=== PATIENT | female | born 1975 | race Hispanic/Latino ===

== ENCOUNTER 2016-10-18 08:28 | Inpatient (IN) ==
[2016-10-18] MEDS ORDERED: IOPAMIDOL 100 ML BOTTLE IV ONE (08:29)
[2016-10-18] MEDS ORDERED: 0.9 % SODIUM CHLORIDE 1,000 ML IV ONE (08:50)
[2016-10-18] MEDS ORDERED: ONDANSETRON 4 MG/2 ML VIAL IV ONE ×2 (08:53→14:29)
--- NOTE | 2016-10-18 09:07 | Emergency Department Note ---
Abdominal Pain HPI - General Chief Complaint: Abdominal Pain Stated Complaint: Abdominal pain Time Seen by Provider: 10/18/16 09:03 Source: patient Mode of arrival: ambulatory Limitations: no limitations - History of Present Illness HPI Narrative: This patient has had nausea vomiting abdominal pain and diarrhea since yesterday. Pain is diffuse in the abdomen diarrhea is just runny. Complaint: abdominal pain Onset (ago): hour(s) Consistency: constant Location: diffuse Severity: moderate Quality: cramping Radiation: none Migration to: no migration Improves with: nothing Worsens with: nothing - Related Data Home Medications Medication Instructions Recorded Confirmed cholecalciferol (vitamin D3) 2,000 4,000 unit PO ONCE cap 02/13/16 10/18/16 unit capsule linaclotide 145 mcg capsule 145 mcg PO QPM cap 08/03/16 10/18/16 linaclotide 290 mcg capsule 290 mcg PO QAM 30 Days 08/03/16 10/18/16 Previous Rx's Medication Instructions Recorded triamterene 37.5 1 tab-cap PO .QOD PRN #30 tab 08/03/16 mg-hydrochlorothiazide 25 mg tablet Allergies Allergy/AdvReac Type Severity Reaction Status Date / Time Imipramine Allergy Severe Lip Verified 10/18/16 19:31 Swelling Penicillins [PENICILLINS] Allergy Severe Stops Verified 10/18/16 19:31 Breathing Review of Systems Constitutional: Denies: fever, chills Eyes: Denies: eye pain ENT ED: Denies: ear pain Cardiovascular: Denies: chest pain Respiratory: Denies: cough Gastrointestinal: Reports: abdominal pain, nausea, vomiting, diarrhea. Denies: constipation, hematemesis, melena, hematochezia Genitourinary: Denies: urgency Musculoskeletal: Denies: back pain Integumentary: Denies: rash Neurological: Denies: headache Abdominal Pain PMH - Past Medical History Medical history: Reports: arthritis, asthma Surgical history ED: Reports: hysterectomy, other (breast augmentation) [employer] history: Reports: bilateral tubal ligation - Social History Alcohol use: Reports: Rarely Drug use: Reports: none Physical Exam - General Limitations: no limitations General appearance: alert - Head Head exam: atraumatic - Eye Eye exam: Present: normal appearance - ENT ENT exam: normal exam - Neck Neck exam: Present: normal inspection - Chest Chest inspection: Present: normal inspection - Respiratory Respiratory exam: Present: normal lung sounds bilaterally - Cardiovascular Cardiovascular exam: Present: regular rate, normal rhythm, normal heart sounds - Abdominal Exam Abdominal exam: Present: soft, tenderness, hyperactive bowel sounds. Absent: distention, guarding, rebound, rigidity Abdominal tenderness: Present: diffuse, moderate - Rectal Exam Rectal exam: Present: deferred - Neurological Exam Neurological exam: Present: alert - Psychiatric Psychiatric exam: Present: normal affect - Skin Skin exam: Present: warm, dry Course Vital Signs Temperature 98.3 F 10/18/16 08:28 Pulse Rate 98 H 10/18/16 08:28 Respiratory Rate 18 10/18/16 08:28 Blood Pressure 120/79 10/18/16 08:28 Pulse Oximetry (%) 100 10/18/16 08:28 Temperature 98.5 F 10/19/16 06:34 Pulse Rate 70 10/19/16 06:34 Respiratory Rate 16 10/19/16 06:34 Blood Pressure 105/70 10/19/16 06:34 Pulse Oximetry (%) 98 10/19/16 06:34 Abdominal Pain - MDM Narrative Medical decision making narrative: Patient was treated with Levaquin and Flagyl fluids and Zofran Dilaudid and after 5 or 6 hours was still very uncomfortable and wished to be admitted. Hospitalist service was contacted and will admit the patient. - Lab Data Lab results reviewed: Yes I reviewed the patient's lab results. Result diagrams: 10/19/16 05:55 10/18/16 08:52 Lab Results 10/18/16 10/18/16 10/18/16 Range/Units 08:52 08:52 09:19 WBC 9.5 (4.5-11.0) K/mcL RBC 4.55 (4.00-5.20) M/mcL Hgb 14.8 (12.0-15.0) g/dL Hct 44.4 (36.0-48.0) % MCV 97.5 (80.0-100.0) fL MCH 32.5 (26.0-34.0) pg MCHC 33.3 (31.0-36.0) g/dL RDW 12.7 (11.5-14.5) % Plt Count 254 (140-440) K/mcL MPV 8.7 (7.4-10.4) fL Gran % 89.6 H (38.0-78.0) % Lymph % (Auto) 6.4 L (15.5-49.0) % [place] % (Auto) 3.2 (1.0-9.0) % Eos % (Auto) 0.6 (0.0-7.0) % Baso % (Auto) 0.2 (0.0-2.0) % Gran # 8.5 H (1.8-8.0) K/mcL Lymph # 0.6 L (1.5-4.8) K/mcL [place] # 0.3 (0.1-0.9) K/mcL Eos # 0.1 (0.0-0.7) K/mcL Baso # 0 (0.0-0.3) K/mcL Sodium 139 (133-145) mmol/L Potassium 4.2 (3.3-5.1) mmol/L Chloride 102 (96-108) mmol/L Carbon Dioxide 23 (22-30) mmol/L Anion Gap 14.0 (8-16) BUN 10 (6-20) mg/dl Creatinine 0.7 (0.6-1.1) mg/dl GFR Calculation 109 Glucose 101 (70-105) mg/dL Calcium 9.1 (8.6-10.4) mg/dl Total Bilirubin 0.9 (0.0-1.0) mg/dL AST 15 (0-37) U/l ALT 10 (0-40) U/l Alkaline Phosphatase 70 (39-117) U/L Total Protein 7.2 (5.9-8.4) gm/dL Albumin 4.1 (3.2-5.2) gm/dL Globulin 3.1 (2.2-3.7) gm/dL Albumin/Globulin Ratio 1.3 (1.0-2.3) Urine Color Evelyn Urine Appearance Cloudy Urine pH 5.0 (5.0-9.0) Ur Specific Drifting 1.026 (1.000-1.035) Urine Protein 30 A (NEG) mg/dL Urine Glucose (UA) Negative (NEG) mg/dL Urine Ketones 20 A (NEG) mg/dL Urine Occult Blood Neg (<0.03) mg/dL Urine Nitrate Neg (NEG) Urine Bilirubin Neg (NEG) mg/dL Urine Urobilinogen Neg (NEG) mg/dL Ur Leukocyte Esterase Neg (NEG) /uL Urine RBC 2 H (0-1) /hpf Urine WBC 2 (0-4) /hpf Ur Squamous Epith Cells 27 H (0-4) /hpf Urine Bacteria 0 (0) /hpf Urine Mucus Many A (0) /hpf Ur Culture Indicated? No - Radiology Data Radiology results reviewed: Yes I reviewed the patient's radiology results. (cT scan was consistent with colitis in the ascending colon) Disposition Clinical Impression: Colitis, Gastroenteritis Disposition: Xfer As Inpt ([facility]) Condition: Fair
[2016-10-18] MEDS: HYDROmorphone 2 MG/ML SYRINGE IV PRN ×4 (09:22→17:23)
[2016-10-18 09:26] LABS: Basophils # (Auto) 0 K/mcL (0.0-0.3); Basophils % (Auto) 0.2 % (0.0-2.0); Eosinophils # (Auto) 0.1 K/mcL (0.0-0.7); Eosinophils % (Auto) 0.6 % (0.0-7.0); Granulocytes % (Auto) 89.6 % (38.0-78.0); Lymphocytes # (Auto) 0.6 K/mcL (1.5-4.8); Lymphocytes % (Auto) 6.4 % (15.5-49.0); Mean Cell Volume 97.5 fL (80.0-100.0); Mean Corpuscular HGB Conc 33.3 g/dL (31.0-36.0); Mean Corpuscular Hemoglobin 32.5 pg (26.0-34.0); Monocytes # (Auto) 0.3 K/mcL (0.1-0.9); Monocytes % (Auto) 3.2 % (1.0-9.0); Platelet Count 254 K/mcL (140-440); RBC 4.55 M/mcL (4.00-5.20); Red Cell Distribution Width 12.7 % (11.5-14.5)
--- NOTE | 2016-10-18 09:36 | XRay Report ---
HISTORY: Reason for Exam:pain r/o sbo FINDINGS: There are a few loops of mildly dilated small bowel in the right mid abdomen which contain air-fluid levels. The stomach is distended with large amount of ingested material and also contains an air-fluid level. Small air-fluid levels are present in nondistended a sending colon. There is no free intra-abdominal air. No soft tissue mass is identified. IMPRESSION: Early or incomplete small bowel obstruction Interpreted and Authenticated by: rA Warren 10/18/16
[2016-10-18 09:52] LABS: Appearance,Urine CLOUDY; Bacteria,Urine 0 /hpf (0); Bilirubin,Urine NEG (NEG); Color,Urine AMBER; Glucose,Urine (UA) NEGATIVE (NEG); Leukocyte Esterase,Urine NEG /uL (NEG); Mucus,Urine MANY /hpf (0); Nitrate,Urine NEG (NEG); Protein,Urine 30 mg/dL (NEG); Specific Gravity,Urine 1.026 (1.000-1.035); Urine Blood NEG mg/dL (<0.03); Urine RBC 2 /hpf (0-1); Urine Squamous Epithelial Cell 27 /hpf (0-4); Urine WBC 2 /hpf (0-4); Urobilinogen,Urine NEG (NEG)
[2016-10-18 09:57] LABS: ALT/SGPT 10 U/l (0-40); Albumin 4.1 gm/dL (3.2-5.2); Albumin/Globulin Ratio 1.3 (1.0-2.3); Alkaline Phosphatase 70 U/L (39-117); Blood Urea Nitrogen 10 mg/dl (6-20)
--- NOTE | 2016-10-18 12:33 | Cat Scan Report ---
CLINICAL INFORMATION: Reason for Exam:sbo on plain film with abdominal cramping and diarrhea COMPARISON: 06/23/16 FINDINGS: The patient was imaged following intravenous but no oral contrast scanning during the portal venous phase from the diaphragm to the symphysis pubis. Sagittal and coronal reformats were created. There are a few bands of discoid atelectasis in the basilar segments left lower lobe. No pleural effusion is present. The heart size is normal. Liver is normal in size. There is a 6 x 8 mm subcapsular cyst laterally in the right lobe. The liver is otherwise homogeneous. The cyst is a chronic finding. The gallbladder contains a round 8 mm calculus. The dietz not thickened or inflamed and the bile ducts are nondilated. The spleen is normal in size and homogeneous. A 1 cm cyst recently lies along the medial side. There is no mass or inflammation the pancreas. The adrenals and kidneys are normal. There is no kidney stone or hydronephrosis. There is a fat-containing umbilical hernia. There is no associated inflammation. The hernia measures 2 cm in width. There is a large amount of fluid in the stomach. The duodenum and jejunum are normal. There are a few loops of fluid-filled distal ileum with air-fluid levels. The measure up to 2.5 cm in diameter. The dietz do not appear to be thickened or inflamed. The terminal ileum appears normal. The appendix is noninflamed. The adjacent colon is incompletely distended. It contains liquefied stool and air-fluid levels. There is circumferential thickening of the wall of the cecum and a sending colon. These are new finding since prior CT done on 06/23/16. No transition point is seen in the large or small intestine. No mass, abscess or ascites or adenopathy are present in the abdomen or pelvis. The uterus has been removed. The previously seen cyst in the right ovary has resolved. No abnormality seen in the adnexa today's exam. IMPRESSION: Air-fluid levels in nondilated distal ileum and a ascending colon. The pattern is more consistent with ileus rather than a small bowel obstruction. The mild thickening of the wall of the colon suggests low-grade colitis or mild inflammatory bowel disease. Dr. Appiah was called with the results Interpreted and Authenticated by: Ar Warren 10/18/16
[2016-10-18] MEDS ORDERED: LEVOFLOXACIN 500 MG/100 ML BAG IV ONE (12:54)
[2016-10-18] MEDS ORDERED: metroNIDAZOLE 500 MG/100 ML BAG IV ONE (12:54)
[2016-10-18] MEDS ORDERED: NALOXONE HCL 0.4 MG/ML VIAL IV PRN ×2 (18:58→19:32)
[2016-10-18] MEDS ORDERED: HYDROmorphone 2 MG/ML SYRINGE IV PRN ×2 (18:58→19:32)
[2016-10-18] MEDS ORDERED: DEXTROSE 5%-1/2NS 1,000 ML IV SCH (19:00)
[2016-10-18] MEDS ORDERED: ONDANSETRON 4 MG/2 ML VIAL IV PRN (19:05)
--- NOTE | 2016-10-18 19:10 | Internal Med History&Physical ---
Medical - H&P: HPI Patient information: Note initiated : 10/18/16 at 7:07 pm Service Date, if different from initiated Date: [] Patient: Jillian Stallworth a 40 y/o F admitted on for Abd Pain. Chief Complaint: [] History of present illness: Ms. Stallworth is a 40 year old female who presents to the hospital today with 2 days history of abdominal pain, nausea and vomiting. The patient has h//o chr bowel issues. she has been following up with GI and had a recent Colnoscopy as well as Ct which was negative. She was daignosed with IBS costipation type and started on linzess approximately a couple of months ago. She has responded well the medication and used to take the medication regularily. She self stopped the medication after her bowels had normalized and then resumed it when she became constipated again. the present episode of abdominal pain ,associated with nause and vomiting started yesterday, pain in the right lower qudarant, distention noted, pain sharp in nature, worse with movement. better with rest. She had an episode of explosive diarrhea, she has not been able to keep any food down today. The patient denies any consumption of stale food, or eating outside. She denies any fever or chills. In the ER the patient underwent a X ray abdomen and pelvis ,which showed early SBO, subsequent CT abdomen and pelvis shows Ileus, with air fluid levels in the distal ileum and ascending colon, with mild colitis. patient denies any recent use of antibiotics, but she does have h/o recurrent UTI in the recent past. She was given levaquin and flagyl in the ER, along with anti nausea meds, the patients condition did not improve and therefore she as admitted to the hospital for further management. Pt was accompanied by her in the ER Review of systems: 10 point ROS done, all negative except as mentioned in the HPI Medical - H&P: PMH Medical history: Medical History Complicated UTI (urinary tract infection) (Acute) Hematuria (Acute) Otitis media, left (Acute) Overweight (BMI 25.0-29.9) (Acute) UTI (urinary tract infection) (Acute) Upper respiratory infection (Acute) Vaginal bleeding between periods (Acute) Vaginitis (Acute) Arthritis (Chronic) Asthma (Chronic) Bilateral knee pain (Chronic) Leiomyoma uteri (Chronic) Menorrhagia (Chronic) Pelvic pain (Chronic) Seasonal allergies (Chronic) Septate uterus (Chronic) Pharyngitis (Resolved) Viral pharyngitis (Resolved) Viral syndrome (Resolved) Depression (Inactive) Surgical history: Past Surgical History History of D&C (Chronic 11/30/15) History of breast augmentation (Chronic) History of colonoscopy (Chronic 07/05/16) History of hysterectomy (Chronic 11/30/15) History of laparoscopy (Chronic 11/30/15) History of tubal ligation (Chronic) Social history: lives with . Medical - H&P: Meds Home Medications Medication Instructions Recorded Confirmed Type cholecalciferol (vitamin D3) 2,000 4,000 unit PO ONCE cap 02/13/16 08/22/16 History unit capsule linaclotide 145 mcg capsule 145 mcg PO QPM cap 08/03/16 08/22/16 History linaclotide 290 mcg capsule 290 mcg PO QAM 30 Days 08/03/16 08/22/16 History Allergies Allergy/AdvReac Type Severity Reaction Status Date / Time Imipramine Allergy Severe Other Verified 10/18/16 08:31 Penicillins [PENICILLINS] Allergy Unknown STOPS Verified 10/18/16 08:31 BREATHING Medical - H&P: Exam - Constitutional Vitals: Temp Pulse Resp BP Pulse Ox 98.3 F 70 16 112/72 99 10/18/16 08:28 10/18/16 18:17 10/18/16 18:17 10/18/16 18:17 10/18/16 18:17 General appearance: cooperative, mild distress - Head Head exam: Present: atraumatic, normal inspection, normocephalic - Eye Eye exam: Absent: conjunctival injection, periorbital swelling, scleral icterus - ENT ENT exam: Present: mucous membranes dry, normal external ear exam - Neck Neck exam: Present: normal inspection - Respiratory Respiratory exam: Present: normal respiratory exam. Absent: accessory muscle use, rhonchi, stridor, wheezes - Cardiovascular Cardiovascular exam: Present: normal rate and rhythm, +S1, +S2 - GI/Abdominal GI/Abdominal exam: Present: diminished bowel sounds, tenderness (right lower quadrant. ). Absent: guarding, mass, organomegaly, rigid - Extremities Exam Extremities exam: Present: normal inspection. Absent: pedal edema - Neurological Exam Neurological exam: Present: alert, CN II-XII intact, oriented X3. Absent: motor sensory deficit - Psychiatric Psychiatric exam: Present: anxious, normal affect - Skin Skin exam: Present: warm. Absent: rash Medical - H&P: Reslt - Labs CBC & Chem 7: 10/18/16 08:52 10/18/16 08:52 Labs: Short CBC 10/18/16 Range/Units 08:52 WBC 9.5 (4.5-11.0) K/mcL Hgb 14.8 (12.0-15.0) g/dL Hct 44.4 (36.0-48.0) % Plt Count 254 (140-440) K/mcL BMP 10/18/16 08:52 Sodium 139 Potassium 4.2 Chloride 102 Carbon Dioxide 23 BUN 10 Creatinine 0.7 Glucose 101 Calcium 9.1 Liver Function 10/18/16 Range/Units 08:52 Total Bilirubin 0.9 (0.0-1.0) mg/dL AST 15 (0-37) U/l ALT 10 (0-40) U/l Alkaline Phosphatase 70 (39-117) U/L Albumin 4.1 (3.2-5.2) gm/dL Urine 10/18/16 Range/Units 09:19 Urine Color Evelyn Urine Appearance Cloudy Urine pH 5.0 (5.0-9.0) Ur Specific Meta 1.026 (1.000-1.035) Urine Protein 30 A (NEG) mg/dL Urine Glucose (UA) Negative (NEG) mg/dL Medical - H&P: A/P (1) Colitis Current visit: Yes Status: Acute colitis on CT with tenderness in the right lower quadrant On IV cipro and flagyl will send cdiff if recurrent stool suspicion low given no recent use of Antibiotics. (2) Ileus, unspecified Current visit: Yes Status: Acute etiology? side effect of linzess? known to cause severe diarrhea in patients. the patient has had explosive diarrhea and large amount of liquid stools accumulated in the ileum and ascending colon. NPO for now IV fluids symptomatic management Repeat X ray in AM, if no improvement Get Surgery evaluation. (3) Nausea and vomiting Current visit: Yes Status: Acute symptomatic treatment. Social History - Social History adopted: No caregiver/support person: No foster care: No household members: other housing: apartment lives independently: Yes marital status: single education level: high school service: No detention: No occupational status: employed occupation: [employer] occupational exposures/hazards: Yes sexually active: Yes - Tobacco smoking status: Never smoker - Alcohol alcohol intake frequency: does not drink - Substance use substance use type: does not use
[2016-10-18] MEDS ORDERED: metroNIDAZOLE 500 MG/100 ML BAG IV SCH (19:15)
[2016-10-18] MEDS ORDERED: CIPROFLOXACIN 400 MG/200 ML BAG IV SCH (19:15)
[2016-10-18] MEDS: DEXTROSE 5%-1/2NS 1,000 ML IV SCH (19:38)
[2016-10-18] MEDS ORDERED: HEPARIN 5,000 UNIT/ML VIAL SQ SCH (21:00)
[2016-10-18] MEDS: 0.9 % SODIUM CHLORIDE 10 ML SYRINGE IV SCH (21:10)
[2016-10-18] MEDS: HEPARIN 5,000 UNIT/ML VIAL SQ SCH (21:10)
[2016-10-18] MEDS: metroNIDAZOLE 500 MG/100 ML BAG IV SCH (21:10)
[2016-10-18] MEDS: ONDANSETRON 4 MG/2 ML VIAL IV PRN (21:10)
[2016-10-18] MEDS ORDERED: 0.9 % SODIUM CHLORIDE 10 ML SYRINGE IV SCH (22:00)
[2016-10-19] MEDS: HYDROmorphone 2 MG/ML SYRINGE IV PRN ×7 (02:35→23:42)
[2016-10-19] MEDS: DEXTROSE 5%-1/2NS 1,000 ML IV SCH ×3 (04:20→19:09)
[2016-10-19] MEDS: ONDANSETRON 4 MG/2 ML VIAL IV PRN ×3 (05:52→21:28)
[2016-10-19] MEDS: metroNIDAZOLE 500 MG/100 ML BAG IV SCH ×3 (05:52→22:32)
[2016-10-19] MEDS: 0.9 % SODIUM CHLORIDE 10 ML SYRINGE IV SCH ×3 (05:55→22:34)
[2016-10-19] MEDS: PROMETHAZINE 25 MG/ML VIAL IV PRN ×3 (07:18→23:42)
[2016-10-19 07:23] LABS: Mean Cell Volume 98.5 fL (80.0-100.0); Mean Corpuscular HGB Conc 33.2 g/dL (31.0-36.0); Mean Corpuscular Hemoglobin 32.7 pg (26.0-34.0); Platelet Count 212 K/mcL (140-440); Red Cell Distribution Width 12.7 % (11.5-14.5)
[2016-10-19 08:44] LABS: Band Neutrophils % 1 % (0-10); Lymphocytes % 18 % (15-49); Monocytes % (Manual) 7 % (1-9); Platelet Estimate NORMAL (NORMAL); RBC Morphology NORMAL (NORMAL); Segmented Neutrophils % 74 % (38-78)
[2016-10-19 08:51] LABS: ALT/SGPT 10 U/l (0-40); Albumin 3.2 gm/dL (3.2-5.2); Albumin/Globulin Ratio 1.1 (1.0-2.3); Alkaline Phosphatase 50 U/L (39-117); Bilirubin,Direct < 0.2 mg/dL (0.0-0.3); Blood Urea Nitrogen 3 mg/dl (6-20); Gamma Glutamyl Transpeptidase 13 U/L (5-36); Magnesium 1.6 mg/dL (1.6-2.5); Phosphorous 2.8 mg/dL (2.7-4.5); Uric Acid 4.4 mg/dL (2.5-8.0)
[2016-10-19] MEDS: CIPROFLOXACIN 400 MG/200 ML BAG IV SCH ×2 (09:40→21:29)
[2016-10-19] MEDS: HEPARIN 5,000 UNIT/ML VIAL SQ SCH ×2 (09:46→22:31)
--- NOTE | 2016-10-19 10:09 | XRay Report ---
HISTORY: Reason for Exam:ileus FINDINGS: There is air in several loops of nondilated large and small intestine. A few air-fluid levels are present in both. There is normal amount of stool in the descending and descending colon. The wall of the ascending colon does not appear to be thickened on this exam. No free intra-abdominal air is present. There is no apparent soft tissue mass. IMPRESSION: Mild ileus pattern Interpreted and Authenticated by: Ar Warren 10/19/16
--- NOTE | 2016-10-19 15:26 | Internal Med Progress Note ---
Medical - PN: Subj Patient information: Note initiated : 10/19/16 at 3:23 pm Service Date, if different from initiated Date: [] Patient: Jillian Stallworth 40 y/o F admitted on 10/18/16 for Abd Pain/Colitis, Nausea and Vomiting. Chief Complaint: [] Interval history: The patient seen examined today, admitted for ileus, colitis and diarrhea. no bm since yesterday, not passing gas, Last night pain and nausea was not being well controlled with 0.5mg dialudid and zofran, dose of dilaudid increased to 1mg and started on phenrgan. Patient was doin better with same Able to ambulate now, but was still nauseas in AM This afternoon the patient wanted something to eat, therefore a trial of liquid diet will be given today. - Constitutional Vitals: Vital Signs Temp Pulse Resp BP Pulse Ox 97.5 F L 62 16 100/58 100 10/19/16 12:23 10/19/16 12:23 10/19/16 12:23 10/19/16 12:23 10/19/16 12:23 Period Temp Pulse Resp BP Sys/Philip Pulse Ox Last 24 Hr 97.5 F-98.9 F 62-71 -16 99-109/58-70 95-100 Intake and Output 10/19/16 10/19/16 10/19/16 05:59 13:59 21:59 Intake Total 100 / 100 1300 / 1300 Balance 100 / 100 1300 / 1300 Weight 157 lb 12.8 oz Patient Weight 10/20/16 05:59 Weight 157 lb 12.8 oz Intake & Output: Intake & Output 10/19/16 10/19/16 10/19/16 05:59 13:59 21:59 Intake Total 100 / 100 1300 / 1300 Balance 100 / 100 1300 / 1300 Weight 157 lb 12.8 oz Intake: IV 100 / 100 1300 / 1300 Dextrose 5%-1/2Ns IV 1000 / 1000 Solution 1,000 ml @ 125 mls/hr IV .Q8H [facility] Rx#: [id number] Oral 0 / 0 Other: # Voids 1 1 - Head Head exam: Present: atraumatic, normal inspection - Eye Eye exam: Absent: periorbital swelling, scleral icterus - ENT ENT exam: Present: mucous membranes dry, normal exam - Respiratory Respiratory exam: Present: normal respiratory exam. Absent: respiratory distress, wheezes - Cardiovascular Cardiovascular exam: Present: normal rate and rhythm, +S1, +S2 - GI/Abdominal Additional comments: Abdomen soft but tender, mostly in the right lower quadrant, better than yesterday bowel sounds have improved. no rigidity, no guarding. - Neurological Exam Neurological exam: Present: CN II-XII intact, oriented X3. Absent: motor sensory deficit Medical - PN: Obj Da - Labs CBC & Chem 7: 10/19/16 05:55 10/19/16 05:55 Labs: Abnormal Lab Results 10/19/16 05:55 Carbon Dioxide 21 L BUN 3 L Glucose 114 H Calcium 8.2 L Meds: Medications Heparin Sodium (Porcine) (Heparin) 5,000 unit SQ Q12 [facility] Last Admin: 10/19/16 09:46 Dose: 5,000 unit Hydromorphone HCl (Dilaudid) 1 mg IV Q2HP PRN PRN Reason: Pain Last Admin: 10/19/16 12:33 Dose: 1 mg Dextrose/Sodium Chloride (Dextrose 5%-1/2ns Iv Solution) 1,000 mls @ 125 mls/ hr IV .Q8H [facility] Last Admin: 10/19/16 12:40 Dose: 125 mls/hr Ciprofloxacin (Cipro) 400 mg in 200 mls @ 200 mls/hr IV Q12H [facility] Last Infusion: 10/19/16 10:55 Dose: Infused Metronidazole (Flagyl) 500 mg in 100 mls @ 100 mls/hr IV Q8H [facility] Last Admin: 10/19/16 14:26 Dose: 100 mls/hr Naloxone HCl (Narcan) 0.1 mg IV Q2MIN PRN PRN Reason: Opiate Reversal Ondansetron HCl (Zofran) 4 mg IV Q4-6HP PRN PRN Reason: Nausea And Vomiting Last Admin: 10/19/16 14:27 Dose: 4 mg Promethazine HCl (Phenergan) 0 mg IV Q4-6HP PRN PRN Reason: Nausea And Vomiting Last Admin: 10/19/16 07:18 Dose: 6.25 mg Sodium Chloride (Saline Flush) 10 ml IV Q8 [facility] Last Admin: 10/19/16 05:55 Dose: Not Given Medical - PN: A/P - Time Spent With Patient Total time spent is greater than 50% in coordination of care (as documented) at patient's floor/unit and/or counseling patient: (1) Colitis Status: Acute Assessment and plan: clinically stable Xray shows progress of gas throught the bowel, but patient has not yet passed gas or BM monitor for now continue cipro and flagyl consider surgical input if patient does not respond by tomorrow patient feels hungry so trial of liquid diet today. Current Visit: Yes (2) Ileus, unspecified Status: Acute Assessment and plan: improving on x ray see above Current Visit: Yes (3) Nausea and vomiting Status: Acute Assessment and plan: on iv zofran and prn phenargan. Current Visit: Yes Medical - PN: Qual - VTE Deep Vein Thrombosis/Pulmonary Embolism Present on Admission: No
[2016-10-20] MEDS: ONDANSETRON 4 MG/2 ML VIAL IV PRN ×4 (03:04→17:46)
[2016-10-20] MEDS: HYDROmorphone 2 MG/ML SYRINGE IV PRN ×8 (03:04→20:43)
[2016-10-20] MEDS: DEXTROSE 5%-1/2NS 1,000 ML IV SCH ×4 (03:24→17:41)
[2016-10-20] MEDS: metroNIDAZOLE 500 MG/100 ML BAG IV SCH ×3 (05:09→22:00)
[2016-10-20] MEDS: PROMETHAZINE 25 MG/ML VIAL IV PRN ×2 (05:09→22:00)
[2016-10-20] MEDS: 0.9 % SODIUM CHLORIDE 10 ML SYRINGE IV SCH ×3 (05:19→22:22)
[2016-10-20 07:06] LABS: Basophils # (Auto) 0 K/mcL (0.0-0.3); Basophils % (Auto) 0.5 % (0.0-2.0); Eosinophils # (Auto) 0.1 K/mcL (0.0-0.7); Eosinophils % (Auto) 4.2 % (0.0-7.0); Granulocytes % (Auto) 49.9 % (38.0-78.0); Lymphocytes # (Auto) 1.1 K/mcL (1.5-4.8); Lymphocytes % (Auto) 31.4 % (15.5-49.0); Mean Cell Volume 99.4 fL (80.0-100.0); Mean Corpuscular HGB Conc 33.2 g/dL (31.0-36.0); Monocytes # (Auto) 0.5 K/mcL (0.1-0.9); Platelet Count 212 K/mcL (140-440); RBC 3.66 M/mcL (4.00-5.20); Red Cell Distribution Width 12.7 % (11.5-14.5)
[2016-10-20 07:46] LABS: ALT/SGPT 8 U/l (0-40); Albumin 3.4 gm/dL (3.2-5.2); Albumin/Globulin Ratio 1.8 (1.0-2.3); Alkaline Phosphatase 45 U/L (39-117); Bilirubin,Direct < 0.2 mg/dL (0.0-0.3); Blood Urea Nitrogen 2 mg/dl (6-20); Gamma Glutamyl Transpeptidase 12 U/L (5-36); Magnesium 1.5 mg/dL (1.6-2.5); Uric Acid 4.4 mg/dL (2.5-8.0)
--- NOTE | 2016-10-20 08:03 | XRay Report ---
HISTORY: Reason for Exam:abdominal pain, ileus. FINDINGS: The bowel pattern is normal. The air-fluid level seen in large and small intestine on 10/19/16 have resolved. Small intestine is decompressed and there is a normal volume of stool and gas in the colon. No free intra-abdominal air is present. There is no evidence for soft tissue mass. IMPRESSION: Normal exam Interpreted and Authenticated by: Ar Warren 10/20/16
[2016-10-20] MEDS ORDERED: MAGNESIUM SULFATE 8.12 MEQ in DEXTROSE 5% IN WATER 50 ML IV ONE (09:02)
[2016-10-20] MEDS: CIPROFLOXACIN 400 MG/200 ML BAG IV SCH ×2 (10:12→20:42)
[2016-10-20] MEDS: HEPARIN 5,000 UNIT/ML VIAL SQ SCH ×2 (10:12→20:43)
[2016-10-20] MEDS ORDERED: IOPAMIDOL 100 ML BOTTLE IJ ONE (11:50)
--- NOTE | 2016-10-20 12:31 | Cat Scan Report ---
CLINICAL INFORMATION: Reason for Exam:abdominal pain/ Right lower quadrant. And abscess COMPARISON: CT on 10/18/16 FINDINGS: The abdomen was imaged following oral and intravenous contrast scanning from the diaphragm to the symphysis pubis. Coronal and sagittal reformats were created. There are bands of discoid atelectasis in both lung bases. The liver and spleen are normal in size and homogeneous. There is an 8 mm calcified stone in the gallbladder. The dietz not thickened and the bile ducts are nondilated. The pancreas, adrenals and kidneys are normal. The barium is passed through small bowel to the mid ileum without obstruction. Distal ileum does not appear inflamed or dilated. There is normal amount of gas and stool in the colon. The appendix is normal. The previously suspected inflammation of the ascending colon is no longer present. This may have been artifact due to normal collapsed mucosal folds on the recent study. The uterus is surgically absent. In the right adnexa the patient has now developed a masslike lesion measuring 3 x 4 cm. As a liquefied central component which is 1.8 x 1.9 cm. On the prior study there is some vague stranding of the soft tissues at this level. Normal ovaries are not clearly identified. Patient has developed a small amount of ascites deep in the pelvis. Urinary bladder is unopacified but appears normal. IMPRESSION: 1. 3 x 4 cm lesion with a liquefied central component in the right adnexa. This could be a hemorrhagic ovarian cyst, pelvic abscess or ovarian torsion with infarction. 2. Small volume of ascites 3. Normal bowel pattern without evidence of inflammatory bowel disease, obstruction or ileus Interpreted and Authenticated by: Ar Warren 10/20/16
--- NOTE | 2016-10-20 14:20 | Internal Med Progress Note ---
Medical - PN: Subj Patient information: Note initiated : 10/20/16 at 2:18 pm Service Date, if different from initiated Date: [] Patient: Jillian Stallworth 40 y/o F admitted on 10/18/16 for Abd Pain/Colitis, Nausea and Vomiting. Chief Complaint: [] Interval history: The patient seen examined Labs reviwed with her the patient was able to tolerate po ok, but still is very nauseas and has significant pain in the right lower quadrant. she notes she is not feeling well today and does not feel much improcvement since admission still requires significant amount of pain medicatios, IV anti nausea meds. - Constitutional Vitals: Vital Signs Temp Pulse Resp BP Pulse Ox 98.6 F 54 L 16 102/58 100 10/20/16 07:51 10/20/16 07:51 10/20/16 07:51 10/20/16 07:51 10/20/16 07:51 Period Temp Pulse Resp BP Sys/Philip Pulse Ox Last 24 Hr 97.8 F-98.6 F 52-66 16-18 99-106/58-67 95-100 Intake and Output 10/20/16 10/20/16 10/20/16 05:59 13:59 21:59 Intake Total 700 / 700 1300 / 1300 Balance 700 / 700 1300 / 1300 Intake & Output: Intake & Output 10/20/16 10/20/16 10/20/16 05:59 13:59 21:59 Intake Total 700 / 700 1300 / 1300 Balance 700 / 700 1300 / 1300 Intake: IV 300 / 300 1300 / 1300 Dextrose 5%-1/2Ns IV 1000 / 1000 Solution 1,000 ml @ 125 mls/hr IV .Q8H [facility] Rx#: [id number] Oral 400 / 400 Other: # Voids 2 General appearance: mild distress - Head Head exam: Present: atraumatic, normal inspection, normocephalic - Eye Eye exam: Absent: conjunctival injection, periorbital swelling, scleral icterus - Neck Neck exam: Present: normal inspection - Respiratory Respiratory exam: Present: normal respiratory exam. Absent: accessory muscle use, respiratory distress - Cardiovascular Cardiovascular exam: Present: normal rate and rhythm, +S1, +S2 - GI/Abdominal GI/Abdominal exam: Present: normal bowel sounds, tenderness (right lower quadrant. Rebound present. ) - Neurological Exam Neurological exam: Present: alert, CN II-XII intact, oriented X3. Absent: motor sensory deficit - Skin Skin exam: Present: warm. Absent: rash, urticaria Medical - PN: Obj Da - Labs CBC & Chem 7: 10/20/16 05:17 10/20/16 05:17 Labs: Abnormal Lab Results 10/20/16 10/20/16 10/19/16 05:17 05:17 05:55 WBC 3.5 L RBC 3.66 L [place] % (Auto) 14.0 H Gran # 1.7 L Lymph # 1.1 L Carbon Dioxide 21 L BUN 2 L 3 L Glucose 114 H Calcium 8.3 L 8.2 L Magnesium 1.5 L Total Protein 5.3 L Globulin 1.9 L Meds: Medications Heparin Sodium (Porcine) (Heparin) 5,000 unit SQ Q12 [facility] Last Admin: 10/20/16 10:12 Dose: 5,000 unit Hydromorphone HCl (Dilaudid) 1 mg IV Q2HP PRN PRN Reason: Pain Last Admin: 10/20/16 12:46 Dose: 1 mg Dextrose/Sodium Chloride (Dextrose 5%-1/2ns Iv Solution) 1,000 mls @ 125 mls/ hr IV .Q8H [facility] Last Admin: 10/20/16 10:09 Dose: 125 mls/hr Ciprofloxacin (Cipro) 400 mg in 200 mls @ 200 mls/hr IV Q12H [facility] Last Infusion: 10/20/16 13:48 Dose: Infused Metronidazole (Flagyl) 500 mg in 100 mls @ 100 mls/hr IV Q8H [facility] Last Infusion: 10/20/16 06:30 Dose: Infused Naloxone HCl (Narcan) 0.1 mg IV Q2MIN PRN PRN Reason: Opiate Reversal Ondansetron HCl (Zofran) 4 mg IV Q4-6HP PRN PRN Reason: Nausea And Vomiting Last Admin: 10/20/16 12:46 Dose: 4 mg Promethazine HCl (Phenergan) 0 mg IV Q4-6HP PRN PRN Reason: Nausea And Vomiting Last Admin: 10/20/16 05:09 Dose: 6.25 mg Sodium Chloride (Saline Flush) 10 ml IV Q8 [facility] Last Admin: 10/20/16 05:19 Dose: Not Given Medical - PN: A/P - Time Spent With Patient Total time spent is greater than 50% in coordination of care (as documented) at patient's floor/unit and/or counseling patient: (1) Colitis Status: Acute Assessment and plan: clinically not improving at all. exam showed significant tenderness and rebound today Discussed with her need for repeat CT scan of the abdomen. This was done in the AM after exam The CT showed pelvic abscess/ ovarion torsion, ovarain cyst which is ruptured. The patient is s/p hystrectomy but still has her ovaries. Will get Pelvic USG today, and then get surgery eval vs [facility] [employer] [facility] shital as per findings. The patient will continue IV ABX for now. Continue Pain management as well as anti nausea meds. Current Visit: Yes (2) Ileus, unspecified Status: Acute Assessment and plan: resolved on x ray but pt still not passing gas or stools Given new findings on X ray, cdiff is extremely unlikely for now d/c order and contact isolation. Current Visit: Yes (3) Nausea and vomiting Status: Acute Assessment and plan: on iv zofran and prn phenargan.continue same on liquid diet for now. Current Visit: Yes (4) Hypomagnesemia Status: Acute Assessment and plan: due to poor oral intake replace IV today. Current Visit: Yes Medical - PN: Qual - VTE Deep Vein Thrombosis/Pulmonary Embolism Present on Admission: No
--- NOTE | 2016-10-20 15:19 | Ultrasound Report ---
History: Pelvic pain with complex mass in the right lower pelvis. Findings: The pelvis was imaged both transabdominally and endovaginally. The uterus is surgically absent. The left ovary is not visualized. The right ovary is visualized and measures 3.1 x 3.8 x 4.2 cm. There are a few follicles. The largest is 1.9 x 2.1 cm. Doppler shows blood flow to the ovary. Contiguous with the ovary there is a complex irregularly shaped cyst with internal debris. It measures 1.8 x 2.4 x 2.5 cm. Doppler shows some mildly increased blood flow along the periphery. Small amount of free fluid is present in the cul-de-sac and adjacent to the right ovary. Impression: Normal right ovary which contains a follicle and there is no evidence of ovarian torsion Complex cystic lesion contiguous with the right ovary which may be a hemorrhagic cyst or small pelvic abscess. This should be correlated with patient's clinical symptoms and laboratory findings. Interpreted and Authenticated by: Ar Warren 10/20/16
[2016-10-20] MEDS ORDERED: ACETAMINOPHEN 325 MG TABLET PO PRN (15:41)
--- NOTE | 2016-10-20 18:01 | Consultation ---
DATE OF CONSULTATION: 10/18/2016 CHIEF COMPLAINT: The patient was seen in consultation at the request of Dr. Naqvi for right lower quadrant abdominal pain and question of pelvic abscess. HISTORY OF PRESENT ILLNESS: The patient is a 40-year-old woman who presented to the Emergency Department 2 days ago with complaints of right-sided abdominal pain. She describes that pain as of sudden onset which occurred the day before coming to the Emergency Department. She said she had been at work and was planning to meet a friend after work, but on the way there she developed a sudden onset of pain in the right abdomen which was quite severe and had her curled up in a position. That evening she was mostly lying still in that position and subsequently had planned to go to work the following morning, but was in so much pain her daughter brought her to the Emergency Department. The patient says that the pain was a sensation of extreme bloating as if her intestines were going to blow up in her abdomen. She says she has issues with intermittent bloating, but has never had this sensation before. She reports a colonoscopy in August of this year with normal findings. She says this was done in [place]. She also underwent a hysterectomy in November of this year for an enlarged uterus and endometriosis. She reports no complications with that operation. On initial presentation to the Emergency Department, the patient was having nausea and associated vomiting with the pain. She also reports having had an episode of explosive diarrhea. Since admission to the hospital, she had not had any stools over the past 48 hours until just before I walked in the room to see her. She denies any sick contacts. She denies any changes in her eating habits. She denies fevers or chills. PAST MEDICAL HISTORY: 1. History of hysterectomy for uterine fibroids and menorrhagia. 2. History of bilateral breast augmentation. 3. History of abdominoplasty. 4. History of asthma which she reports as seasonal. She does not require chronic daily use of inhalers, but has a rescue inhaler. 5. The patient denies any history of myocardial disease or history of diabetes. FAMILY HISTORY: Significant for diabetes. She reports a sister with cervical cancer. She did not report any family history of liver cancer. SOCIAL HISTORY: The patient denies tobacco use. She denies recreational drug use. She reports that she is not sexually active. ALLERGIES: 1. IMIPRAMINE. 2. PENICILLINS. MEDICATIONS: 1. Cholecalciferol 2. Linaclotide. REVIEW OF SYSTEMS: CONSTITUTIONAL: The patient denies fevers or chills. CARDIOVASCULAR: Denies chest pain or pressure at rest or with exertion. The patient states she is able to walk up 2 flights of stairs without difficulty. PULMONARY: Reports problems with seasonal asthma, but denies any recent onset of shortness of breath, cough or production of sputum. GI: Abdominal pain with diarrhea as per HPI also associated with nausea. : History of hematuria associated with menorrhagia. Denies any current symptoms of dysuria or hematuria. NEUROLOGIC: Reports an episode of numbness and tingling in the right leg a few months. She was seen in the Emergency Department for this and says that she was told this was related to runner's knee. HEMATOLOGIC: Denies any history of DVT or PE. ANESTHETIC: The patient denies any adverse reactions to prior general anesthetics. PHYSICAL EXAMINATION: VITAL SIGNS: Temperature 98.6, pulse 57, respirations 18, blood pressure 123/78, O2 saturations 100% on room air. GENERAL: The patient is a well-developed, well-nourished woman who appears her stated age. She is not acutely distressed, but appears uncomfortable. HEENT: Head is normocephalic. Sclerae are white. Mucous membranes are moist. CHEST: Breath sounds are clear to auscultation bilaterally. No rales or wheezes are heard. No use of accessory respiratory musculature. CARDIOVASCULAR: Regular rate and rhythm. ABDOMEN: Mildly obese, soft. Patient reports tenderness in the right lower abdomen extending toward the pelvis and in the suprapubic area. There is no guarding or rebound on my exam, although the patient was medicated about an hour or more before I saw her. There was no rigidity to her abdomen. Two areas of bruising were noted in the skin on the right lower abdomen which patient states are sites of injection. EXTREMITIES: Warm without cyanosis, clubbing, or edema. DP pulses are easily palpable bilaterally. LABS AND STUDIES: Labs from today show a white blood cell count of 3.5, hemoglobin 12.1, hematocrit 36.3 and platelets of 212. Granulocytes of 49.9% on differentials. On admission 2 days ago, white blood cell count was 9.5, hemoglobin was 14.8, hematocrit was 44.4 and platelets were 254 with 89% granulocytes. Serum chemistries today showed sodium of 140, potassium 3.5, chloride 104, CO2 25, BUN 2, creatinine 0.6, glucose 98, calcium 8.3, phosphorus 3.0, magnesium 1.5, total bilirubin 0.2, GGT 12, AST 11, ALT 8, alkaline phosphatase 45, LDH 115, total protein 5.3, albumin 3.4, and triglycerides 48. Urinalysis was negative for nitrates and leukocyte esterase, 2 red blood cells were noted and 2 white blood cells were noted, but 27 squamous cells were noted in the specimen. Initial imaging from ER visit and admission date the patient was noted to have what was thought to be mild thickening of the wall of the colon on the right side suggestive of low grade colitis or mild inflammatory bowel disease, and some air fluid levels in nondilated distal ileum and ascending colon with a pattern more consistent with ileus rather than small bowel. The patient has being followed with serial abdominal X-rays over the subsequent 2 days which, on my review of these X-rays, have shown progression of gas into the large intestine through the right side and into the left side. She underwent a repeat CT scan imaging today which I have reviewed both the images and the report from and shows a 3 cm x 4 cm lesion with a liquified central component in the right adnexa which is read by the Radiologist as possibly a hemorrhagic ovarian cyst, pelvic abscess, or ovarian torsion with infarction. A small volume of ascites was noted in the pelvis. Normal bowel pattern without evidence of inflammatory bowel disease or obstruction or ileus is noted. It should be noted that the appendix was seen and viewed as normal on both this CT today and a CT on admission. The patient subsequently underwent a pelvic transvaginal ultrasound which showed a normal right ovary which contains a follicle with no evidence of ovarian torsion, but there is a complex cystic lesion contiguous with the right ovary which may be a hemorrhagic cyst or a small pelvic abscess. DISCUSSION, ASSESSMENT AND PLAN: Right adnexal mass, query ovarian cyst versus abscess. Imaging suggests this new found lesion in the pelvis is contiguous with the ovary, and for this reason I recommend gynecology consultation. Evaluation of the bowel initially showed questionable colitis; however, repeat imaging suggests that this may have been a thickening from folds of collapsed bowel on itself as there does not appear to be any sign of inflammatory change of the intestine on this repeat evaluation. Given the proximity of this area to the ovary, I would defer to Gynecology on decision on continuing treatment with antibiotics versus a more invasive intervention. If the decision is made to proceed to the operating room for a closer evaluation of this lesion then I would also want to be present for this in case this is found to be not of gynecologic etiology and other surgical intervention or decision is needed. This was discussed with the patient as well as with Dr. Naqvi, the consulting Hospitalist. Although the patient's imaging shows a change related to the ovary, her pain has been associated with GI symptoms. She has started having significant diarrhea again and I recommend C. diff evaluation of her stool to rule this out as a cause of her right-sided pain given that there was still initially a questionable call of colitis seen on the initial imaging. If the pelvic findings are not thought to be of gynecologic concern GI cause remains a consideration. Abscess related to colonic inflammation is possible; however, on imaging no clear sign of diverticulitis or appendicitis and in the absence of fever, leukcytosis, or other signs of systemic inflammation abscess seems unlikely. But if this is abscess from lower GI source without sign of free perforation would initially treat conservatively with bowel rest and IV antibiotics and monitor progress. RC:flex Job ID: [id number] Doc ID: [id number] Sandy GRIMALDO
--- NOTE | 2016-10-20 18:48 | Consultation ---
DATE OF CONSULTATION: 10/18/2016 HISTORY: This is a 40-year-old female who presented to the hospital 2 days ago with a history of severe abdominal pain beginning the evening previous to her presentation. She describes that she felt extremely bloated as though she was about to explode and then developed nausea, vomiting followed by extreme diarrhea at which point she presented to the hospital. She was admitted and imaging studies initially indicated air fluid levels and a dilated distal ileum and ascending colon consistent with an ileus rather than a small-bowel obstruction as well as a mild thickening of the wall of the colon suggesting a low grade colitis or inflammatory bowel disease. She was admitted with this premise and placed on IV antibiotics; however, she continued to have severe pain and repeat imaging studies then suggested a complex area in the right lower pelvis contiguous with the right ovary. The patient had previously had a robotic total hysterectomy in [place] with Dr. Olivo. She describes that she had an enlarged uterus as well as endometriosis and a "cousin to endometriosis.' This was in November 2015. Previous to her hysterectomy she had a bilateral tubal ligation. She denies prior history of intestinal disease, though does relate that she commonly will go for a week without a bowel movement, and when this occurs she gets distinct distention in the right lower abdomen. She has not had a history of ovarian cysts in the past. She is not currently sexually active. She is still on a friendly basis, however, with her ex-boyfriend. Described on the most current ultrasound from today is a complex cystic lesion contiguous at the right ovary which may represent a hemorrhagic cyst or small pelvic abscess. The dimension of the ovary itself was normal and contained a normal appearing follicle. There was blood flow present and no evidence of ovarian torsion per the ultrasound report. 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 PAST MEDICAL HISTORY: Additional surgical history, she has had breast augmentation, abdominoplasty as well as bilateral myringotomies. ALLERGIES: 1. IMIPRAMINE. 2. PENICILLIN. MEDICATIONS: 1. Ciprofloxacin. 2. Vancomycin. 3. Analgesics. PHYSICAL EXAMINATION: GENERAL: She is a well-developed, well-nourished female who appears uncomfortable. HEENT: Grossly normocephalic. LUNGS: Clear. HEART: Regular rate and rhythm. ABDOMEN: Soft with bowel sounds present. She reports tenderness with palpation in the right upper quadrant and both lower quadrants. She does have some rebound tenderness, but is not particularly guarding. PELVIC: Not done. LABS AND IMAGING: Her white blood cell count today was 3.5, on admission it was 9.5. Hemoglobin is 12.1, on admission 2 days ago it was 14.8. 1. Persistent abdominal pain despite 2 days of antibiotic therapy. 2. Progression of complex cystic area in the right lower quadrant since admission of unclear etiology i.e., GI origin versus adnexal origin. There are no obvious signs of infection based on the absence of fever, leukocytosis, etc. Additionally, there are no obvious signs of acute hemorrhage; however, the patient's pain has not improved and, therefore, the plan is for a diagnostic laparoscopy management accordingly. This will be planned in coordination with Dr. Dumont, general surgeon, who has also seen and evaluated the patient. Potential complications such as bleeding, infection, the risk of injury to nearby organs such as the bowel, bladder or blood vessel were reviewed. She would receive blood for life saving purposes. SAB:flex Job ID: [id number] Doc ID: [id number] Elena GRIMALDO
[2016-10-21] MEDS: DEXTROSE 5%-1/2NS 1,000 ML IV SCH ×4 (00:13→20:25)
[2016-10-21] MEDS: ONDANSETRON 4 MG/2 ML VIAL IV PRN ×2 (02:31→10:05)
[2016-10-21] MEDS: HYDROmorphone 2 MG/ML SYRINGE IV PRN ×8 (02:31→23:18)
[2016-10-21] MEDS: PROMETHAZINE 25 MG/ML VIAL IV PRN ×2 (05:19→20:49)
[2016-10-21] MEDS: metroNIDAZOLE 500 MG/100 ML BAG IV SCH ×3 (05:20→20:50)
[2016-10-21] MEDS: 0.9 % SODIUM CHLORIDE 10 ML SYRINGE IV SCH ×3 (06:14→20:50)
[2016-10-21 07:05] LABS: Basophils # (Auto) 0 K/mcL (0.0-0.3); Basophils % (Auto) 0.4 % (0.0-2.0); Eosinophils # (Auto) 0.1 K/mcL (0.0-0.7); Eosinophils % (Auto) 3.1 % (0.0-7.0); Granulocytes % (Auto) 62.7 % (38.0-78.0); Lymphocytes # (Auto) 1.2 K/mcL (1.5-4.8); Lymphocytes % (Auto) 24.9 % (15.5-49.0); Mean Cell Volume 98.4 fL (80.0-100.0); Mean Corpuscular HGB Conc 33.2 g/dL (31.0-36.0); Mean Corpuscular Hemoglobin 32.6 pg (26.0-34.0); Monocytes # (Auto) 0.4 K/mcL (0.1-0.9); Monocytes % (Auto) 8.9 % (1.0-9.0); Platelet Count 212 K/mcL (140-440); RBC 3.92 M/mcL (4.00-5.20); Red Cell Distribution Width 12.6 % (11.5-14.5)
[2016-10-21 07:38] LABS: ALT/SGPT 9 U/l (0-40); Albumin 3.2 gm/dL (3.2-5.2); Albumin/Globulin Ratio 1.2 (1.0-2.3); Alkaline Phosphatase 49 U/L (39-117); Bilirubin,Direct < 0.2 mg/dL (0.0-0.3); Blood Urea Nitrogen 3 mg/dl (6-20); Gamma Glutamyl Transpeptidase 16 U/L (5-36); Magnesium 1.6 mg/dL (1.6-2.5); Phosphorous 3.4 mg/dL (2.7-4.5); Uric Acid 4.3 mg/dL (2.5-8.0)
[2016-10-21] MEDS ORDERED: MAGNESIUM SULFATE 2 GM/50 ML BAG IV ONE (08:04)
[2016-10-21] MEDS ORDERED: POTASSIUM CHLORIDE 40 MEQ in DEXTROSE 5% IN WATER 500 ML IV ONE (08:04)
--- NOTE | 2016-10-21 08:36 | OB/GYN Progress Note ---
Assessment and Plan (1) Abdominal pain Continue antibiotics and bowel rest as above with continued observation for improvement. Status: Acute Subjective - Subjective Patient information: Note initiated : 10/21/16 at 8:32 am Service Date, if different from initiated Date: [] Patient: Jillian Stallworth 40 y/o F admitted on 10/18/16 for Abd Pain/Colitis, Nausea and Vomiting. Chief Complaint: []abdominal pain Principal diagnosis: abdominal pain Interval history: Pt still having abdominal pain. Bowel movement last noc tested pos for c.dif and therefore this finding has influenced differential diagnosis as it is now thought her pain is most likely of GI origin, in which case, bowel rest and antibiotics would be indicated management plan. Vancomycin was added to the previous antibiotic regimen of Flagyl and Cipro. Pt remains afebrile with normal WBC and stable Hb. Patient reports: appetite normal, voiding normally, pain well controlled, ambulating normally Objective - Vital Signs Latest vital signs: Vital Signs Temp Pulse Resp BP BP Pulse Ox 10/21/16 06:38 99.1 F 64 16 102/66 96 10/21/16 05:25 98.7 F 79 18 111/70 98 10/21/16 00:00 98.1 F 88 14 114/62 97 10/20/16 20:00 97.9 F 79 18 112/67 97 10/20/16 15:48 98.6 F 57 L 18 123/78 100 10/20/16 12:00 98.6 F 66 16 100/63 96 Intake and Output 10/20/16 10/21/16 10/21/16 21:59 05:59 13:59 Intake Total 1885 / 1885 900 / 900 Output Total 200 / 200 Balance 1685 / 1685 900 / 900 Intake: IV 1085 / 1085 100 / 100 Dextrose 5%-1/2Ns IV 933 / 933 Solution 1,000 ml @ 125 mls/hr IV .Q8H [facility] Rx#: [id number] Dextrose 5% in Water 50 52 / 52 ml @ 52 mls/hr IV ONCE ONE with Magnesium Sulfate 8.12 [facility] Rx#: [id number] Oral 800 / 800 800 / 800 Output: Stool 200 / 200 Other: Meal Dinner Percent of Meal Consumed 50% Feeding Ability Independent # Voids 5 1 # Bowel Movements 0 Weight 159 lb - Labs Labs: Abnormal lab results 10/21/16 10/21/16 Range/Units 05:10 05:10 RBC 3.92 L (4.00-5.20) M/mcL Lymph # 1.2 L (1.5-4.8) K/mcL Potassium 3.1 L (3.3-5.1) mmol/L BUN 3 L (6-20) mg/dl Glucose 130 H (70-105) mg/dL Calcium 8.4 L (8.6-10.4) mg/dl Total Protein 5.8 L (5.9-8.4) gm/dL
--- NOTE | 2016-10-21 09:37 | General Surgery Progress Note ---
Surgical - Auxillary Note - Subjective Patient Information: Note initiated : 10/21/16 at 9:18 am Service Date, if different from initiated Date: [] Patient: Jillian Stallworth a 40 y/o F admitted on 10/18/16 for Abd Pain/Colitis, Nausea and Vomiting. Chief Complaint: Patient resting in bed. Said she slept last night. Received two doses of pain medicine after I saw her last night. Reports pain is about the same, but not worse. Reports headache. No nausea or emesis. Stool was positive for Cdiff toxin. Vital Signs Temp Pulse Resp BP Pulse Ox 99.1 F 64 16 102/66 96 10/21/16 06:38 10/21/16 06:38 10/21/16 06:38 10/21/16 06:38 10/21/16 06:38 Period Temp Pulse Resp BP Sys/Philip Pulse Ox Last 24 Hr 97.9 F-99.1 F 57-88 14-18 100-123/62-78 96-100 Intake and Output 10/20/16 10/21/16 10/21/16 21:59 05:59 13:59 Intake Total 1885 / 1885 900 / 900 Output Total 200 / 200 Balance 1685 / 1685 900 / 900 Weight 159 lb PE: Appears uncomfortable but not acutely distressed. Chest: clear bilaterally. CV: regular rhythm ABD: Soft, tender in suprapubic right side and mid upper abdomen. No rebound and no guarding. EXT: warm with distal pulses easily palpable. CBC and Chem 7 10/21/16 05:10 10/21/16 05:10 A/P: Abdominal pain. Cdiff positive. Has been on flagyl but now started on oral Vancomycin also. I reviewed films again and ovarian cyst present on imaging from june. Some fluid around this area may be related to colitis which could be attributed to Cdiff. Treat for Cdiff and follow exam and Abd Xrays. This morning's plain film shows no free air and contrast throughout colon into rectum and no air- fluid levels. Continue antibiotics and bowel rest with no more than clear liquids as tolerated.
[2016-10-21] MEDS: CIPROFLOXACIN 400 MG/200 ML BAG IV SCH (09:38)
[2016-10-21] MEDS: VANCOMYCIN ORAL SOL 1,000 MG/10 ML BOTTLE PO SCH ×4 (09:38→20:49)
[2016-10-21] MEDS: HEPARIN 5,000 UNIT/ML VIAL SQ SCH ×2 (09:39→20:49)
--- NOTE | 2016-10-21 11:29 | Internal Med Progress Note ---
Medical - PN: Subj Patient information: Note initiated : 10/21/16 at 11:25 am Service Date, if different from initiated Date: [] Patient: Jillian Stallworth 40 y/o F admitted on 10/18/16 for Abd Pain/Colitis, Nausea and Vomiting. 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 The patient did finally have bowel movements yesterday, Cdiff was sent and it was reported back as positive. The patient has been started on po vancomycin at 500 mg q6 hrs The patient still reports abdominal pain and nausea, but has been tolerating liquid diet ok, her serial abdominal x rays seem to be improving. The patient was expalained the diagnosis today, its likely that there are two possible pathologies, at this time, Cdiff causing diarrhea and abdominal pain, and the ovarian cyst, which the patient seems to have had in the past. She denies any headaches, denies any chest pain or cough and shortness of breath. - Constitutional Vitals: Vital Signs Temp Pulse Resp BP Pulse Ox 98.5 F 66 16 103/62 96 10/21/16 11:23 10/21/16 11:23 10/21/16 11:23 10/21/16 11:23 10/21/16 11:23 Period Temp Pulse Resp BP Sys/Philip Pulse Ox Last 24 Hr 97.9 F-99.1 F 57-88 14-18 100-123/62-78 96-100 Intake and Output 10/20/16 10/21/16 10/21/16 21:59 05:59 13:59 Intake Total 5 / 2085 900 / 900 Output Total 200 / 200 Balance 1885 / 1885 900 / 900 Weight 159 lb Intake & Output: Intake & Output 10/20/16 10/21/16 10/21/16 21:59 05:59 13:59 Intake Total 2085 / 2085 900 / 900 Output Total 200 / 200 Balance 1885 / 1885 900 / 900 Weight 159 lb Intake: IV 1285 / 1285 100 / 100 Dextrose 5%-1/2Ns IV 933 / 933 Solution 1,000 ml @ 125 mls/hr IV .Q8H [facility] Rx#: [id number] Dextrose 5% in Water 50 52 / 52 ml @ 52 mls/hr IV ONCE ONE with Magnesium Sulfate 8.12 Meq Rx#: [id number] Oral 800 / 800 800 / 800 Output: Stool 200 / 200 Other: Meal Dinner Percent of Meal Consumed 50% Feeding Ability Independent # Voids 5 1 # Bowel Movements 0 General appearance: cooperative, no acute distress - Head Head exam: Present: atraumatic, normal inspection, normocephalic - Eye Eye exam: Absent: periorbital swelling, scleral icterus - ENT ENT exam: Present: mucous membranes moist, normal external ear exam - Respiratory Respiratory exam: Present: normal respiratory exam. Absent: rhonchi, stridor, wheezes - Cardiovascular Cardiovascular exam: Present: normal rate and rhythm, +S1, +S2 - GI/Abdominal GI/Abdominal exam: Present: normal bowel sounds, tenderness (right lq, epigastric regionl ) - Neurological Exam Neurological exam: Present: CN II-XII intact, oriented X3. Absent: motor sensory deficit Medical - PN: Obj Da - Labs CBC & Chem 7: 10/21/16 05:10 10/21/16 05:10 Labs: Abnormal Lab Results 10/21/16 10/21/16 10/20/16 05:10 05:10 05:17 WBC RBC 3.92 L [place] % (Auto) Gran # Lymph # 1.2 L Potassium 3.1 L Carbon Dioxide BUN 3 L 2 L Glucose 130 H Calcium 8.4 L 8.3 L Magnesium 1.5 L Total Protein 5.8 L 5.3 L Globulin 1.9 L 10/20/16 10/19/16 05:17 05:55 WBC 3.5 L RBC 3.66 L [place] % (Auto) 14.0 H Gran # 1.7 L Lymph # 1.1 L Potassium Carbon Dioxide 21 L BUN 3 L Glucose 114 H Calcium 8.2 L Magnesium Total Protein Globulin Meds: Medications Acetaminophen (Tylenol) 650 mg PO Q6HP PRN PRN Reason: PAIN/FEVER > 101 Heparin Sodium (Porcine) (Heparin) 5,000 unit SQ Q12 [facility] Last Admin: 10/21/16 09:39 Dose: 5,000 unit Hydromorphone HCl (Dilaudid) 1 mg IV Q2HP PRN PRN Reason: Pain Last Admin: 10/21/16 10:05 Dose: 1 mg Dextrose/Sodium Chloride (Dextrose 5%-1/2ns Iv Solution) 1,000 mls @ 125 mls/ hr IV .Q8H [facility] Last Admin: 10/21/16 05:04 Dose: Not Given Ciprofloxacin (Cipro) 400 mg in 200 mls @ 200 mls/hr IV Q12H [facility] Last Admin: 10/21/16 09:38 Dose: 200 mls/hr Metronidazole (Flagyl) 500 mg in 100 mls @ 100 mls/hr IV Q8H [facility] Last Admin: 10/21/16 05:20 Dose: 100 mls/hr Potassium Chloride 40 meq/ (Dextrose) 520 mls @ 130 mls/hr IV ONCE ONE Stop: 10/21/16 12:03 Last Admin: 10/21/16 09:37 Dose: 130 mls/hr Naloxone HCl (Narcan) 0.1 mg IV Q2MIN PRN PRN Reason: Opiate Reversal Ondansetron HCl (Zofran) 4 mg IV Q4-6HP PRN PRN Reason: Nausea And Vomiting Last Admin: 10/21/16 10:05 Dose: 4 mg Promethazine HCl (Phenergan) 0 mg IV Q4-6HP PRN PRN Reason: Nausea And Vomiting Last Admin: 10/21/16 05:19 Dose: 6.25 mg Sodium Chloride (Saline Flush) 10 ml IV Q8 [facility] Last Admin: 10/21/16 06:14 Dose: Not Given Vancomycin HCl (Vancomycin Oral Martina) 500 mg PO QID [facility] Last Admin: 10/21/16 09:38 Dose: 500 mg Medical - PN: A/P - Time Spent With Patient Total time spent is greater than 50% in coordination of care (as documented) at patient's floor/unit and/or counseling patient: (1) Colitis Status: Acute Assessment and plan: colitis likely C diff colitis H/o recurrent UTI in the past, and was taking abx for same, but not sure if taken any recently. last prescribed abx for uti seem to be in may, for levofloxacin and bactrim, She had z pack given this september In either case, given diarrhea, positive Cdiff pcr will treat with vancomycin the patient does not seem to have any elevated wbc, and stable h/h Current Visit: Yes (2) Nausea and vomiting Status: Acute Assessment and plan: on iv zofran and prn phenargan.continue same on liquid diet for now. Current Visit: Yes (3) Hypomagnesemia Status: Acute Assessment and plan: due to poor oral intake replace IV today.again. Hypokalemia also noted replace Current Visit: Yes (4) Clostridium difficile colitis Status: Acute Current Visit: Yes Medical - PN: Qual - VTE Deep Vein Thrombosis/Pulmonary Embolism Present on Admission: No
--- NOTE | 2016-10-21 15:26 | XRay Report ---
HISTORY: Reason for Exam:abdominal pain FINDINGS: There is dilute contrast throughout the colon following yesterday's CT scan. There is also contrast in a nondistended appendix. The small bowel is decompressed. There is no bowel obstruction, ileus or free intra-abdominal air. No mass or abscess are identified. IMPRESSION: Normal exam Interpreted and Authenticated by: Ar Warren 10/21/16
[2016-10-21] MEDS ORDERED: VANCOMYCIN ORAL SOL 1,000 MG/10 ML BOTTLE PO SCH (21:00)
[2016-10-22] MEDS: HYDROmorphone 2 MG/ML SYRINGE IV PRN ×2 (01:47→05:12)
[2016-10-22] MEDS: DEXTROSE 5%-1/2NS 1,000 ML IV SCH ×2 (05:12→11:39)
[2016-10-22] MEDS: metroNIDAZOLE 500 MG/100 ML BAG IV SCH (05:58)
[2016-10-22] MEDS: 0.9 % SODIUM CHLORIDE 10 ML SYRINGE IV SCH (06:03)
[2016-10-22] MEDS: ONDANSETRON 4 MG/2 ML VIAL IV PRN (06:56)
[2016-10-22 07:24] LABS: Basophils # (Auto) 0 K/mcL (0.0-0.3); Basophils % (Auto) 0.6 % (0.0-2.0); Eosinophils # (Auto) 0.3 K/mcL (0.0-0.7); Eosinophils % (Auto) 7.2 % (0.0-7.0); Granulocytes % (Auto) 41.7 % (38.0-78.0); Lymphocytes # (Auto) 1.8 K/mcL (1.5-4.8); Lymphocytes % (Auto) 39.9 % (15.5-49.0); Mean Cell Volume 99.3 fL (80.0-100.0); Mean Corpuscular HGB Conc 33.2 g/dL (31.0-36.0); Mean Corpuscular Hemoglobin 32.9 pg (26.0-34.0); Monocytes # (Auto) 0.5 K/mcL (0.1-0.9); Monocytes % (Auto) 10.6 % (1.0-9.0); Platelet Count 208 K/mcL (140-440); RBC 3.67 M/mcL (4.00-5.20); Red Cell Distribution Width 12.3 % (11.5-14.5)
[2016-10-22 07:42] LABS: ALT/SGPT 10 U/l (0-40); Albumin 3.4 gm/dL (3.2-5.2); Albumin/Globulin Ratio 1.7 (1.0-2.3); Alkaline Phosphatase 43 U/L (39-117); Bilirubin,Direct < 0.2 mg/dL (0.0-0.3); Blood Urea Nitrogen 2 mg/dl (6-20); Gamma Glutamyl Transpeptidase 14 U/L (5-36); Magnesium 1.7 mg/dL (1.6-2.5); Phosphorous 3.1 mg/dL (2.7-4.5); Uric Acid 3.7 mg/dL (2.5-8.0)
[2016-10-22] MEDS ORDERED: HYDROmorphone 2 MG/ML SYRINGE IV PRN (08:00)
--- NOTE | 2016-10-22 08:00 | General Surgery Progress Note ---
Surgical - Auxillary Note - Subjective Patient Information: Note initiated : 10/22/16 at 7:53 am Service Date, if different from initiated Date: [] Patient: Jillian Stallworth a 40 y/o F admitted on 10/18/16 for Abd Pain/Colitis, Nausea and Vomiting. Chief Complaint: Patient resting in bed. Says she passed liquid stool yesterday with last stool having some formed elements. No stools this morning as of yet. Still using dilaudid for pain. Says her bloating is less but still has pain. c/ o of nasal congestion and right ear pain. Vital Signs Temp Pulse Resp BP Pulse Ox 98.8 F 55 L 16 100/62 100 10/22/16 06:37 10/22/16 06:37 10/22/16 06:37 10/22/16 06:37 10/22/16 06:37 Period Temp Pulse Resp BP Sys/Philip Pulse Ox Last 24 Hr 97.6 F-98.8 F 52-66 16-18 90-124/50-68 94-100 Intake and Output 10/21/16 10/22/16 10/22/16 21:59 05:59 13:59 Intake Total 1740 / 1740 1350 / 1350 Balance 1740 / 1740 1350 / 1350 Weight 158 lb 12.8 oz PE: general appearance: patient looks comfortable. alert and oriented. HEENT: TMs clear with normal light reflex. no pharyngeal erythema CV: regular rate and rhythm Chest: breath sounds clear bilaterally ABD: non distended. soft. blending tank tender helper in right, right lower, and mid upper abdomen. EXT: warm, no edema. Pulses palpable. CBC and Chem 7 10/22/16 05:35 10/22/16 05:35 A/P: Stable with some symptomatic improvement. WBCs normal. Still with diarrhea. Continue treatment for Cdiff. following.
--- NOTE | 2016-10-22 10:36 | Internal Med Progress Note ---
Medical - PN: Subj Patient information: Note initiated : 10/22/16 at 10:33 am Service Date, if different from initiated Date: [] Patient: Jillian Stallworth a 40 y/o F admitted on 10/18/16 for Abd Pain/Colitis, Nausea and Vomiting. Chief Complaint: [] Interval history: 10/18- Ms. Stallworth is a 40 year old female who presents to the hospital today with 2 days history of abdominal pain, nausea and vomiting. The patient has h//o chr bowel issues. she has been following up with GI and had a recent Colnoscopy as well as Ct which was negative. She was daignosed with IBS costipation type and started on linzess approximately a couple of months ago. She has responded well the medication and used to take the medication regularily. She self stopped the medication after her bowels had normalized and then resumed it when she became constipated again. the present episode of abdominal pain ,associated with nause and vomiting started yesterday, pain in the right lower qudarant, distention noted, pain sharp in nature, worse with movement. better with rest. She had an episode of explosive diarrhea, she has not been able to keep any food down today. The patient denies any consumption of stale food, or eating outside. She denies any fever or chills. In the ER the patient underwent a X ray abdomen and pelvis ,which showed early SBO, subsequent CT abdomen and pelvis shows Ileus, with air fluid levels in the distal ileum and ascending colon, with mild colitis. patient denies any recent use of antibiotics, but she does have h/o recurrent UTI in the recent past. She was given levaquin and flagyl in the ER, along with anti nausea meds, the patients condition did not improve and therefore she as admitted to the hospital for further management. Pt was accompanied by her in the ER 10/19 -10/21. patient was evaluated by surgeries as well as gynecology for possible ovary and cyst/abscess on imaging. However without leukocytosis or fever it was felt highly unlikely and was advised conservative management for C. difficile induced colitis. Patient on oral vancomycin 500 4 times a day 10/22-case discussed with surgery. Recommended clear liquid diet and follow-up with surgery in 2 weeks as outpatient. Discharging on oral vancomycin for additional 2 weeks. No overnight fever chills abdominal pain. Soft formed stools. No significant leukocytosis. Patient requesting discharge. Clearly understand instructions as below - Constitutional Vitals: Vital Signs Temp Pulse Resp BP Pulse Ox 98.8 F 55 L 16 100/62 100 10/22/16 06:37 10/22/16 06:37 10/22/16 06:37 10/22/16 06:37 10/22/16 06:37 Period Temp Pulse Resp BP Sys/Philip Pulse Ox Last 24 Hr 97.6 F-98.8 F 52-66 16-18 90-124/50-68 94-100 Intake and Output 10/21/16 10/22/16 10/22/16 21:59 05:59 13:59 Intake Total 1740 / 1740 1350 / 1350 Balance 1740 / 1740 1350 / 1350 Weight 158 lb 12.8 oz Intake & Output: Intake & Output 10/21/16 10/22/16 10/22/16 21:59 05:59 13:59 Intake Total 1740 / 1740 1350 / 1350 Balance 1740 / 1740 1350 / 1350 Weight 158 lb 12.8 oz Intake: IV 1100 / 1100 1100 / 1100 Dextrose 5%-1/2Ns IV 1000 / 1000 1000 / 1000 Solution 1,000 ml @ 125 mls/hr IV .Q8H [facility] Rx#: [id number] Oral 640 / 640 250 / 250 Other: Meal Lunch Percent of Meal Consumed 100% # Voids 1 1 Medical - PN: Obj Da - Labs CBC & Chem 7: 10/22/16 05:35 10/22/16 05:35 Labs: Abnormal Lab Results 10/22/16 10/22/16 10/21/16 05:35 05:35 05:10 WBC 4.4 L RBC 3.67 L [place] % (Auto) 10.6 H Eos % (Auto) 7.2 H Gran # Lymph # Potassium 3.1 L BUN 2 L 3 L Glucose 107 H 130 H Calcium 8.2 L 8.4 L Magnesium Total Protein 5.4 L 5.8 L Globulin 2.0 L 10/21/16 10/20/16 10/20/16 05:10 05:17 05:17 WBC 3.5 L RBC 3.92 L 3.66 L [place] % (Auto) 14.0 H Eos % (Auto) Gran # 1.7 L Lymph # 1.2 L 1.1 L Potassium BUN 2 L Glucose Calcium 8.3 L Magnesium 1.5 L Total Protein 5.3 L Globulin 1.9 L Meds: Medications Acetaminophen (Tylenol) 650 mg PO Q6HP PRN PRN Reason: PAIN/FEVER > 101 Heparin Sodium (Porcine) (Heparin) 5,000 unit SQ Q12 [facility] Last Admin: 10/21/16 20:49 Dose: 5,000 unit Hydromorphone HCl (Dilaudid) 0.5 mg IV Q4-6HP PRN PRN Reason: Pain Dextrose/Sodium Chloride (Dextrose 5%-1/2ns Iv Solution) 1,000 mls @ 125 mls/ hr IV .Q8H [facility] Last Admin: 10/22/16 05:12 Dose: 125 mls/hr Metronidazole (Flagyl) 500 mg in 100 mls @ 100 mls/hr IV Q8H [facility] Last Admin: 10/22/16 05:58 Dose: 100 mls/hr Naloxone HCl (Narcan) 0.1 mg IV Q2MIN PRN PRN Reason: Opiate Reversal Ondansetron HCl (Zofran) 4 mg IV Q4-6HP PRN PRN Reason: Nausea And Vomiting Last Admin: 10/22/16 06:56 Dose: 4 mg Promethazine HCl (Phenergan) 0 mg IV Q4-6HP PRN PRN Reason: Nausea And Vomiting Last Admin: 10/21/16 20:49 Dose: 6.25 mg Sodium Chloride (Saline Flush) 10 ml IV Q8 [facility] Last Admin: 10/22/16 06:03 Dose: Not Given Vancomycin HCl (Vancomycin Oral Martina) 500 mg PO QID [facility] Last Admin: 10/21/16 20:49 Dose: 500 mg Medical - PN: A/P - Time Spent With Patient Total time spent is greater than 50% in coordination of care (as documented) at patient's floor/unit and/or counseling patient: Medical - PN: Qual - VTE Deep Vein Thrombosis/Pulmonary Embolism Present on Admission: No
--- NOTE | 2016-10-22 10:39 | Discharge Summary ---
Medical - DS: Prov Patient information: Note initiated : 10/22/16 at 10:36 am Service Date, if different from initiated Date: [] Patient: Jillian Stallworth 40 y/o F admitted on 10/18/16 for Abd Pain/Colitis, Nausea and Vomiting. Chief Complaint: [] Date of admission: 10/18/16 19:18 Discharge date: 10/22/16 Primary care physician: [f_Reg Prim Care Provider] Consults: 10/20/16 16:09 Consult to Physician [CONS] Routine Comment: Pelvic absces vs ovarion cyst abdominal pain, Consulting Provider: Sandy Dumont Reason For Exam: Physician to Consult 10/20/16 17:58 Consult to Physician [CONS] Routine Comment: Consulting Provider: Elena Limon Reason For Exam: Physician to Consult Medical - DS: Meds - Discharge Medications Prescriptions: Vancomycin Oral Martina 500 mg PO QID #56 bottle Active and Home Medications: Home Medications Vancomycin Oral Martina 500 mg PO QID #56 bottle 10/22/16 [Rx Last Taken Unknown] Active Medications Acetaminophen (Tylenol) 650 mg PO Q6HP PRN PRN Reason: PAIN/FEVER > 101 Heparin Sodium (Porcine) (Heparin) 5,000 unit SQ Q12 [facility] Last Admin: 10/21/16 20:49 Dose: 5,000 unit Hydromorphone HCl (Dilaudid) 0.5 mg IV Q4-6HP PRN PRN Reason: Pain Dextrose/Sodium Chloride (Dextrose 5%-1/2ns Iv Solution) 1,000 mls @ 125 mls/ hr IV .Q8H [facility] Last Admin: 10/22/16 05:12 Dose: 125 mls/hr Metronidazole (Flagyl) 500 mg in 100 mls @ 100 mls/hr IV Q8H [facility] Last Infusion: 10/22/16 07:00 Dose: Infused Naloxone HCl (Narcan) 0.1 mg IV Q2MIN PRN PRN Reason: Opiate Reversal Ondansetron HCl (Zofran) 4 mg IV Q4-6HP PRN PRN Reason: Nausea And Vomiting Last Admin: 10/22/16 06:56 Dose: 4 mg Promethazine HCl (Phenergan) 0 mg IV Q4-6HP PRN PRN Reason: Nausea And Vomiting Last Admin: 10/21/16 20:49 Dose: 6.25 mg Sodium Chloride (Saline Flush) 10 ml IV Q8 [facility] Last Admin: 10/22/16 06:03 Dose: Not Given Vancomycin HCl (Vancomycin Oral Martina) 500 mg PO QID [facility] Last Admin: 10/21/16 20:49 Dose: 500 mg Medical - DS: Hosp Hospital course: DISCHARGE DIAGNOSIS * C. difficile colitis- on 14 days oral vancomycin. Clinically resolved. No leukocytosis or diarrhea. * Question of ovarian cyst/caution on CT abdomen- patient is asymptomatic and was advised by surgery to follow-up in 2 weeks as outpatient * hypertension on triamterene/thiazide BRIEF HOSPITAL COURSE 10/18- Ms. Stallworth is a 40 year old female who presents to the hospital today with 2 days history of abdominal pain, nausea and vomiting. The patient has h//o chr bowel issues. she has been following up with GI and had a recent Colnoscopy as well as Ct which was negative. She was daignosed with IBS costipation type and started on linzess approximately a couple of months ago. She has responded well the medication and used to take the medication regularily. She self stopped the medication after her bowels had normalized and then resumed it when she became constipated again. the present episode of abdominal pain ,associated with nause and vomiting started yesterday, pain in the right lower qudarant, distention noted, pain sharp in nature, worse with movement. better with rest. She had an episode of explosive diarrhea, she has not been able to keep any food down today. The patient denies any consumption of stale food, or eating outside. She denies any fever or chills. In the ER the patient underwent a X ray abdomen and pelvis ,which showed early SBO, subsequent CT abdomen and pelvis shows Ileus, with air fluid levels in the distal ileum and ascending colon, with mild colitis. patient denies any recent use of antibiotics, but she does have h/o recurrent UTI in the recent past. She was given levaquin and flagyl in the ER, along with anti nausea meds, the patients condition did not improve and therefore she as admitted to the hospital for further management. Pt was accompanied by her in the ER 10/19 -10/21. patient was evaluated by surgery as well as gynecology for possible ovarian cyst/abscess on imaging. However without leukocytosis or fever it was felt highly unlikely and abscess and was advised conservative management for C. difficile induced colitis. Patient was continued on oral vancomycin 500 4 times a day with significant improvement in diarrhea and abdominal pain. 10/22-case discussed with surgery. Recommended clear liquid diet and follow-up with surgery in 2 weeks as outpatient. Discharging on oral vancomycin for additional 2 weeks. No overnight fever chills abdominal pain. Soft formed stools. No significant leukocytosis. Patient requesting discharge. Clearly understand discharge instructions as below - Time Spent with Patient Total time spent providing and/or coordinating discharge services: Greater than 30 minutes Medical - DS: Exam - Constitutional Vitals: Vital Signs Temp Pulse Pulse Resp BP BP Pulse Ox 10/22/16 06:37 98.8 F 55 L 16 100/62 100 10/22/16 03:53 97.8 F 63 16 96/60 94 10/21/16 23:15 97.8 F 52 L 18 90/50 10/21/16 19:17 97.6 F 60 18 124/68 10/21/16 15:16 98.5 F 65 16 107/67 95 10/21/16 11:23 98.5 F 66 16 103/62 96 Intake and Output 10/21/16 10/22/16 10/22/16 21:59 05:59 13:59 Intake Total 1740 / 1740 1350 / 1350 100 / 100 Balance 1740 / 1740 1350 / 1350 100 / 100 Intake: IV 1100 / 1100 1100 / 1100 100 / 100 Dextrose 5%-1/2Ns IV 1000 / 1000 1000 / 1000 Solution 1,000 ml @ 125 mls/hr IV .Q8H [facility] Rx#: [id number] Oral 640 / 640 250 / 250 Other: Meal Lunch Percent of Meal Consumed 100% # Voids 1 1 Weight 158 lb 12.8 oz General appearance: cooperative, no acute distress Additional comments: laboratory oriented non-labored breathing Medical - DS: Data Labs on day of discharge: Labs from last 24 hours 10/22/16 10/22/16 05:35 05:35 WBC 4.4 L RBC 3.67 L Hgb 12.1 Hct 36.5 MCV 99.3 MCH 32.9 MCHC 33.2 RDW 12.3 Plt Count 208 MPV 8.5 Gran % 41.7 Lymph % (Auto) 39.9 [place] % (Auto) 10.6 H Eos % (Auto) 7.2 H Baso % (Auto) 0.6 Gran # 1.8 Lymph # 1.8 [place] # 0.5 Eos # 0.3 Baso # 0 Sodium 140 Potassium 4.0 Chloride 105 Carbon Dioxide 22 Anion Gap 13.0 BUN 2 L Creatinine 0.6 GFR Calculation 115 Glucose 107 H Uric Acid 3.7 Calcium 8.2 L Phosphorus 3.1 Magnesium 1.7 Total Bilirubin 0.3 Direct Bilirubin < 0.2 GGT 14 AST 15 ALT 10 Alkaline Phosphatase 43 Lactate Dehydrogenase 132 Total Protein 5.4 L Albumin 3.4 Globulin 2.0 L Albumin/Globulin Ratio 1.7 Triglycerides 71 Medical - DS: A/P - Patient/Caregiver Discharge Instructions Activity: increase activity as tolerated, resume usual activities as tolerated Diet: Full Liquid Additional Instructions: Follow-up PCP in 5 days follow-up with surgery in 2 weeks I recommend primary care physician to INR, CBC BMP UA as a posthospital follow- up and repeat C. difficile in 2 weeks oral vancomycin for 14 days continue liquid diet as per surgery recommendations Continue fall precautions Return to ER if worsening fever chills abdominal pain, diarrhea, bleeding Continue liquid diet and activity as advised Discussed importance of medication adherence Please review medication list with patient prior to discharge Please schedule follow-up with PCP/Providers prior to discharge and provide printouts Portions of this chart may have been created with [employer] voice recognition software. Occasional wrong-word or ?sound-like? substitutions may have occurred due to the inherent limitations of voice recognition software. Please read the chart carefully and recognize, using context, where the substitutions have occurred. CC- PCP Prescriptions: Vancomycin Oral Martina 500 mg PO QID #56 bottle - Follow up Plan Follow up with: Bert Lock MD [Primary Care Provider] - Disposition: Home, Self-Care Prognosis: Fair Rehab Potential: Fair I certify that the patient requires SNF services: No Overall status at discharge: patient is progressing back to baseline Medical - DS: Qual - VTE Deep Vein Thrombosis/Pulmonary Embolism Present on Admission: No
[2016-10-22] MEDS: HEPARIN 5,000 UNIT/ML VIAL SQ SCH (10:42)
[2016-10-22] MEDS: VANCOMYCIN ORAL SOL 1,000 MG/10 ML BOTTLE PO SCH (10:42)
== END 2016-10-22 11:25 | disposition home or self-care (01) | DRG 372 ==
LOC: ED 08:28 → MEDSUR 19:18
PROVIDERS: ADMIT Internal Medicine; ATTEND Internal Medicine